=== PATIENT | female | born 1945 | race Caucasian/White ===

== ENCOUNTER 2017-12-24 10:32 | Day surgery (SDC) | payer MEDICARE ==
[2017-12-24] MEDS ORDERED: Lactated Ringer's 500 ML IV ONE (10:54)
[2017-12-24] MEDS ORDERED: Propofol 10 mg/ml Inj (20 ML) ONE (11:37)
[2017-12-24 12:00] VITALS: TEMP 97; O2SAT 98
[2017-12-24 12:09] VITALS: BP 107/68; PULSE 96; RESP 16
== END 2017-12-24 12:19 | disposition home or self-care (01) ==
LOC: H.ENDO 10:32
PROVIDERS: ATTEND Internal Medicine Gastroenterology
DX: K57.30 Diverticulosis of large intestine without perforation or abscess without bleeding (principal); K64.0 First degree hemorrhoids; R19.4 Change in bowel habit; R10.32 Left lower quadrant pain
CPT/HCPCS: 45378; J2001; J2704; J7120